=== PATIENT | female | born 1995 | race Caucasian/White ===

== ENCOUNTER 2020-02-17 13:58 | Emergency (ER) | payer BC ==
[2020-02-17 15:06] LABS: #Eosinphils 0.1 thou/uL (0.0-0.7); #Lymphocytes 1.7 thou/uL (1.20-3.40); #Monocytes 0.4 thou/uL (0.11-0.59); #Neutrophils 6.7 thou/uL (1.40-6.50); %Basophils 0.5 % (0.0-1.0); %Eosinophils 0.7 % (0.0-10.0); %Lymphocytes 18.8 % (21.0-51.0); %Monocytes 4.6 % (0.0-10.0); %Neutrophils 75.4 % (42.0-75.0); Hemoglobin 12.6 g/dL (12.0-16.0); Mean Corpuscular HGB CONC 35.8 g/dL (32.0-36.0); Mean Corpuscular Hemoglobin 33.7 pg (27.0-31.0); Mean Corpuscular Volume 94.1 fL (78.0-98.0); Mean Platelet Volume 6.8 fL (7.4-10.4); Platelet Count 254 thou/uL (130-400); RBC Distribution Width 11.7 % (11.5-14.5); Red Blood Cell (RBC) Count 3.75 mill/uL (4.20-5.40); White Blood Cell (WBC) Count 8.9 thou/uL (4.8-10.8)
[2020-02-17] MEDS ORDERED: Ondansetron PF 4 MG/2 ML Vial ONE (15:29)
[2020-02-17 16:13] LABS: ALT (SGPT) 12 U/L (8-55); AST (SGOT) 17 U/L (5-34); Albumin 3.6 g/dL (3.5-5.0); Alkaline Phosphatase 65 U/L (40-110); Anion Gap 13 mmol/L (10-20); BUN (Urea Nitrogen) 11 mg/dL (7.0-18.7); Bilirubin, Total 0.5 mg/dL (0.2-1.2); Calc. Creatinine Clearance 0 mL/min (70-130); Carbon Dioxide 22 mmol/L (22-29); Chloride 105 mmol/L (98-107); Estimated GFR-MDRD Greater than 90; Globulin 3.3 g/dL (2.4-3.5); Glucose 75 mg/dL (70-105); Lipase 4 U/L (8-78); Potassium 3.5 mmol/L (3.5-5.1); Protein, Total 6.9 g/dL (6.0-8.3); Sodium 136 mmol/L (136-145)
== END 2020-02-17 16:40 | disposition home or self-care (01) ==
LOC: ERS 13:58
DX: O21.2 Late vomiting of pregnancy (principal); O99.282 Endocrine, nutritional and metabolic diseases complicating pregnancy, second trimester; E86.0 Dehydration; Z3A.22 22 weeks gestation of pregnancy
CPT/HCPCS: 36415; 80053; 83690; 85025; 96361; 96374; J2405

== ENCOUNTER 2020-06-04 04:32 | Inpatient (IN) | payer BC ==
[2020-06-04 05:26] VITALS: BMI 31.8
[2020-06-04] MEDS ORDERED: hydrALAZINE 20 MG/ML VIAL SLOW IVP PRN ×3 (05:53→18:42)
[2020-06-04 06:08] LABS: Amnisure Test RUPTURE DETECTED (No Rupture)
[2020-06-04 06:09] LABS: Amnisure Internal Control QC ACCEPTABLE (ACCEPTABLE)
[2020-06-04] MEDS ORDERED: Acetaminophen 500 MG TAB PO PRN (06:46)
[2020-06-04] MEDS ORDERED: NS / Oxytocin 40 units/1000ml 1,000 ML IV PRN (06:46)
[2020-06-04] MEDS ORDERED: Zolpidem Tartrate 5 MG TAB PO PRN (06:46)
[2020-06-04] MEDS ORDERED: Butorphanol Tartrate 1 MG/ML VIAL SLOW IVP PRN (06:46)
[2020-06-04] MEDS ORDERED: Misoprostol 200 MCG TAB PR PRN (06:46)
[2020-06-04] MEDS ORDERED: Methylergonovine 0.2 MG/ML VIAL IM PRN (06:46)
[2020-06-04] MEDS ORDERED: Ibuprofen 800 MG TAB PO PRN (06:46)
[2020-06-04] MEDS ORDERED: Promethazine HCl 25 MG/ML VIAL IM PRN ×2 (06:46→18:42)
[2020-06-04] MEDS ORDERED: Acetaminophen/Codeine 30-300mg Tablet PO PRN ×2 (06:46)
[2020-06-04] MEDS ORDERED: Ondansetron PF 4 MG/2 ML Vial IVP PRN ×2 (06:46→18:42)
[2020-06-04] MEDS ORDERED: Lidocaine 1% (PF) 30 ML VIAL SC PRN (06:46)
--- NOTE | 2020-06-04 06:52 | PDOC.LDHP ---
Labor and Delivery H&P Chief complaint: contractions, loss of fluid HPI: 25 yo WF presents c/o UCs and LOF since 3 AM. Denies bleeding. Current gestational age (weeks): 37 Due date: 06/20/20 Dating criteria: last menstrual period Grav: 3 Para: 1 Current complications: none Abnormal US findings: No Current medications: pre-arnoldo vitamins Previous surgical history: none Allergies/Adverse Reactions: Allergies Allergy/AdvReac Type Severity Reaction Status Date / Time sulfamethoxazole Allergy Verified 06/04/20 05:24 [From Bactrim] trimethoprim [From Bactrim] Allergy Hives Verified 06/04/20 05:24 Social history: none - Physical Exam Vital signs reviewed and normal: yes General: NAD Heart: RRR Lungs: CTAB Abdomen: gravid Extremeties: trace edema FHT: category 1 [place] contractions every: Ucs q 3-6 - Vaginal Exam cm dilated: 3 Effacement: 50% Station: -2 - OB Labs GBS: negative - Assessment L&D Assessment: term rupture in membranes - Plan Plan: admit to L&D, labor augmentation if indicated, informed consent obtained, anesthesia consult for pain management, other (Dr. Pittman notified of admit)
[2020-06-04] MEDS ORDERED: NS w/ Oxytocin 10 units 500 ML IV SCH (07:00)
[2020-06-04] MEDS ORDERED: Lactated Ringer's 1,000 ML IV SCH (07:00)
[2020-06-04 07:27] LABS: Hemoglobin 13.4 g/dL (12.0-16.0); Mean Corpuscular HGB CONC 35.3 g/dL (32.0-36.0); Mean Corpuscular Hemoglobin 33.5 pg (27.0-31.0); Mean Corpuscular Volume 94.8 fL (78.0-98.0); Mean Platelet Volume 7.5 fL (7.4-10.4); Platelet Count 199 thou/uL (130-400); RBC Distribution Width 11.8 % (11.5-14.5); Red Blood Cell (RBC) Count 4.01 mill/uL (4.20-5.40); White Blood Cell (WBC) Count 8.1 thou/uL (4.8-10.8)
[2020-06-04 08:07] LABS: HBSAg Index 0.17 S/CO (0-0.99); Hep B Surf Ag Non-Reactive S/CO (NonReactive); Syphilis Antibody Nonreactive (Nonreactive); Syphilis Antibody Index 0.08 S/CO (<1.00 Non-Reactive)
[2020-06-04] MEDS: Lactated Ringer's 1,000 ML IV SCH ×2 (08:59→09:46)
[2020-06-04] MEDS ORDERED: Bupivacaine 0.25% HCL 30 ML VIAL ONE (11:24)
[2020-06-04] MEDS ORDERED: Fentanyl 4 mcg/Bup 0.1% Cadd 100 ML ONE (14:21)
[2020-06-04] MEDS ORDERED: Lidocaine 1% (PF) 30 ML VIAL ONE (16:46)
[2020-06-04] MEDS ORDERED: NS / Oxytocin 40 units/1000ml 1,000 ML ONE (16:47)
--- NOTE | 2020-06-04 17:23 | PDOC.OPDEL ---
OB Operative/Delivery Note Delivery Dr/Surgeon: Toya Assist: n/a Pre-Delivery Diagnosis: active labor Procedure/Post Delivery Dx: spontaneous vaginal delivery Weeks gestation: 37 Anesthesia: epidural - Findings A Sex: female - 1 min: 9 - 5 min: 9 - Additional Findings/Plan Placenta delivered: spontaneous Repaired Obstetrical Laceration: 1st degree Estimated blood loss: 350cc Post delivery plan: routine recovery
[2020-06-04] MEDS ORDERED: Bisacodyl 10 MG SUPP PR PRN (18:42)
[2020-06-04] MEDS ORDERED: NS / Oxytocin 40 units/1000ml 1,000 ML IV SCH (18:42)
[2020-06-04] MEDS ORDERED: Benzocaine-Menthol 82.5 ML CAN TOP PRN (18:42)
[2020-06-04] MEDS ORDERED: Lanolin Ointment 7 GM TUBE TOP PRN (18:42)
[2020-06-04] MEDS ORDERED: Preparation H Ointment 28 GM TUBE PR PRN (18:42)
[2020-06-04] MEDS ORDERED: Milk Of Magnesia 30 ML UDCUP PO PRN (18:42)
[2020-06-04] MEDS ORDERED: diphenhydrAMINE 25 MG CAP PO PRN (18:42)
[2020-06-04] MEDS ORDERED: HYDROcodone/Acetaminophen 5/325 mg Tablet PO PRN ×2 (18:42)
[2020-06-04] MEDS ORDERED: Adacel (T-DAP) 0.5 ML SYRINGE IM ONE (18:42)
[2020-06-05] MEDS: Docusate Calcium (SURFAK) 240 MG CAP PO SCH ×3 (00:34→21:30)
[2020-06-05] MEDS: Ibuprofen 800 MG TAB PO SCH ×3 (00:34→21:30)
[2020-06-05] MEDS: Ferrous Sulfate 325 MG TAB PO SCH ×2 (07:47→16:05)
[2020-06-05] MEDS ORDERED: Prenatal Vitamin 1 TAB PO SCH (09:00)
[2020-06-05 12:42] LABS: SARS-CoV-2 MS2 Positive; SARS-CoV-2 N Gene Negative; SARS-CoV-2 S Gene Negative; SARS-CoV-2 orf1ab Negative
[2020-06-05 14:43] VITALS: BP 117/61; TEMP 98.6
== END 2020-06-05 22:08 | disposition home or self-care (01) | DRG 807 ==
LOC: L&D/OP 04:32 → L&D 06:48 → 3SW 20:29
PROVIDERS: ADMIT Student in an Organized Health Care Education/Training Program; ATTEND Student in an Organized Health Care Education/Training Program
PROC: 10E0XZZ Delivery of Products of Conception, External Approach (ICD-10-PCS; principal; 2020-06-04)
PROC: 0HQ9XZZ Repair Perineum Skin, External Approach (ICD-10-PCS; 2020-06-04)
DX: O70.0 First degree perineal laceration during delivery (principal); Z37.0 Single live birth; Z3A.37 37 weeks gestation of pregnancy; Z11.59 Encounter for screening for other viral diseases; Z88.2 Allergy status to sulfonamides; Z88.1 Allergy status to other antibiotic agents
CPT/HCPCS: 36415; 84112; 85027; 86780; 86850; 86900; 86901; 87340; 87635; J2001; J2590; S0020; U0003